=== PATIENT | female | born 1980 | race Caucasian/White ===

== ENCOUNTER 2016-09-11 07:47 | Emergency (ER) | payer SELFPAY ==
[~2016-09-11] VITALS: Ht 170.2 cm; Wt 36.3 kg
[~2016-09-11 07:47] MED LIST: FIORICET PO; IRON325 MG OR; LORTAB 7.5 PO; METRONIDAZOL500 MG PO; MONISTAT1 VA; PRENATAL1 TAB OR; PROPYLTHIOUR50 MG PO; [UNRECOGNIZED DRUG - OTHER] OR; [UNRECOGNIZED DRUG - OTHER] PO
[2016-09-11] MEDS ORDERED: AUGMENTIN500TAB PO (09:00)
[2016-09-11 09:25] VITALS: BP 133/86
[2016-09-11] MEDS ORDERED: DOXYCYC MONO100 M1 PO (11:00)
== END 2016-09-11 09:25 | disposition home or self-care (01) | DRG 950 ==
LOC: ED 07:47
DX: S91.311D Laceration without foreign body, right foot, subsequent encounter (principal)